=== PATIENT | male | born 1955 | race Caucasian/White ===

== ENCOUNTER 2017-01-01 16:12 | Inpatient (IN) | payer MEDICAID ==
[~2017-01-01] VITALS: Ht 188 cm; Wt 116.0 kg
[~2017-01-01 16:12] MED LIST: ACE325RS PR; LASIX; LEVO100T83 OR; TIOTCAP
[2017-01-01] MEDS ORDERED: SODIUM CHLORIDE 0.9% 1,000 ML IVB ONE (16:26)
[2017-01-01 17:06] LABS: Basophils # (auto) 0 uL; Basophils % (auto) 0.3 % (0.0-2.0); Eosinophils # (auto) 0 uL; Eosinophils % (auto) 0.2 % (0.0-7.0); Hematocrit 41.6 % (41.0-53.0); Hemoglobin 14.1 g/dL (13.5-17.5); Lymphocytes # (auto) 1.1 uL; Lymphocytes % (auto) 7.4 % (10.0-50.0); Mean Corpuscular Hemoglobin 32.6 pg (28.0-32.0); Mean Corpuscular Hgb Conc. 33.9 g/dL (32.0-36.0); Mean Corpuscular Volume 96.2 fL (80.0-100.0); Mean Platelet Volume 8.9 fL (6.9-10.8); Monocytes # (auto) 1.5 uL; Monocytes % (auto) 9.9 % (0.0-12.0); Neutrophils % (auto) 82.2 % (37.0-80.0); Nucleated Red Blood Cells % 0.1 %; Platelet Count (auto) 219 10^3/uL (140-450); Red Cell Distribution Width 14.2 % (11.8-14.3); White Blood Cell 14.7 10^3/uL (4.4-10.8)
[2017-01-01 17:20] LABS: Anion Gap 8 (5-15); Aspartate Aminotransferase 60 U/L (15-37); BUN/Creatinine Ratio 16.5; Blood Urea Nitrogen 23 mg/dL (7-18); Calcium 9.1 mg/dL (8.5-10.1); Carbon Dioxide 25 mmol/L (21-32); Chloride 100 mmol/L (98-107); GFR African American 67 mL/min; GFR Non-African American 55 mL/min; Glucose 127 mg/dL (74-106); Magnesium 2.2 mg/dL (1.6-2.6); Potassium 4.2 mmol/L (3.5-5.1); Sodium 133 mmol/L (136-145)
[2017-01-01 17:25] LABS: Alkaline Phosphatase 388 U/L (45-117); Bilirubin, Total 0.9 mg/dL (0.2-1.0); Total Protein 8.7 g/dL (6.4-8.2)
[2017-01-01] MEDS ORDERED: ACETAMINOPHEN 325 MG TAB PO PRN (22:15)
[2017-01-01] MEDS ORDERED: NITROGLYCERIN 0.4 MG SL TAB SL PRN (22:15)
[2017-01-01] MEDS ORDERED: MORPHINE SULF INJ 2 MG/ML SYRINGE 1ML IV PRN (22:15)
[2017-01-01] MEDS ORDERED: AZITHROMYCIN 500MG/D5W 250ML 250 ML IV ONE (22:15)
[2017-01-01] MEDS ORDERED: cefTRIAXone 1GM/50ML D5W 50 ML IV ONE (22:15)
[2017-01-01] MEDS ORDERED: HYDROcodone-ACET 5/325MG TAB PO PRN (22:15)
[2017-01-01] MEDS ORDERED: ONDANSETRON HCL 4 MG/2 ML VIAL IV PRN (22:15)
[2017-01-01 23:00] VITALS: BP_SYST 96; BP_DIAS 46; BP_DIAS 49
[2017-01-02 05:12] VITALS: BP 103/59
[2017-01-02 05:31] LABS: Basophils # (auto) 0 uL; Basophils % (auto) 0.4 % (0.0-2.0); Eosinophils # (auto) 0.1 uL; Eosinophils % (auto) 0.6 % (0.0-7.0); Hematocrit 38.1 % (41.0-53.0); Lymphocytes # (auto) 1.8 uL; Lymphocytes % (auto) 15.9 % (10.0-50.0); Mean Corpuscular Hemoglobin 32.3 pg (28.0-32.0); Mean Corpuscular Hgb Conc. 34.1 g/dL (32.0-36.0); Mean Corpuscular Volume 94.8 fL (80.0-100.0); Mean Platelet Volume 8.7 fL (6.9-10.8); Monocytes # (auto) 1.2 uL; Monocytes % (auto) 10.2 % (0.0-12.0); Neutrophils # (auto) 8.4 uL; Neutrophils % (auto) 72.9 % (37.0-80.0); Platelet Count (auto) 202 10^3/uL (140-450); White Blood Cell 11.5 10^3/uL (4.4-10.8)
[2017-01-02 05:49] LABS: Albumin 2.6 g/dL (3.4-5.0); BUN/Creatinine Ratio 18.3; Calcium 9.2 mg/dL (8.5-10.1); Potassium 4.1 mmol/L (3.5-5.1)
[2017-01-02 05:51] LABS: Bilirubin, Total 0.8 mg/dL (0.2-1.0); Total Protein 7.8 g/dL (6.4-8.2)
[2017-01-02] MEDS ORDERED: BACL20TA PO (06:30)
[2017-01-02] MEDS ORDERED: TRAM50TA2 PO (06:31)
[2017-01-02] MEDS ORDERED: LISI2.5T47 PO (06:32)
[2017-01-02] MEDS ORDERED: FER325T PO (06:32)
[2017-01-02] MEDS ORDERED: LEVO150T10 PO (06:32)
[2017-01-02] MEDS ORDERED: ALL100T PO (06:33)
[2017-01-02] MEDS ORDERED: PRAV20TA3 PO (06:33)
[2017-01-02] MEDS ORDERED: FURO40TA4 PO (06:34)
[2017-01-02] MEDS ORDERED: ALBUAER3 IN (06:35)
[2017-01-02] MEDS ORDERED: IPRIH INH (06:35)
[2017-01-02] MEDS ORDERED: FLUT110A IN (06:36)
[2017-01-02 07:00] VITALS: BP 98/58
[2017-01-02] MEDS: LEVOTHYROXINE SODIUM 100 MCG TAB PO SCH (07:06)
[2017-01-02] MEDS: FAMOTIDINE 20 MG TAB PO SCH ×2 (09:30→21:59)
[2017-01-02] MEDS: ENOXAPARIN SOD 40 MG/0.4 ML SYRINGE SC SCH (09:30)
[2017-01-02 11:46] VITALS: BP 106/65
[2017-01-02] MEDS ORDERED: LORazepam 2MG/ML-1ML VIAL IV PRN (13:30)
[2017-01-02 13:44] LABS: Cholesterol 151 mg/dL (< 200); HDL Cholesterol 33 mg/dL (40-59); LDL Cholesterol 104 mg/dL (< 100); Triglycerides 113 mg/dL (< 150)
[2017-01-02] MEDS: ASPirin-EC 81 mg tab PO SCH (14:35)
[2017-01-02 16:00] VITALS: BP 109/69
[2017-01-02 19:48] VITALS: BP 109/69
[2017-01-02 21:41] VITALS: BP 122/67
[2017-01-02] MEDS: cefTRIAXone 1GM/50ML D5W 50 ML IV SCH (21:58)
[2017-01-02] MEDS: ATORVASTATIN 20 MG TAB PO SCH (21:59)
[2017-01-02] MEDS: AZITHROMYCIN 500MG/D5W 250ML 250 ML IV SCH (21:59)
[2017-01-03] MEDS ORDERED: LACTULOSE 20Gm/30ML SOLN PO PRN (03:30)
[2017-01-03 04:50] VITALS: BP 99/61
[2017-01-03] MEDS: LEVOTHYROXINE SODIUM 100 MCG TAB PO SCH (06:35)
[2017-01-03 08:00] VITALS: BP 102/52
[2017-01-03] MEDS: FAMOTIDINE 20 MG TAB PO SCH ×2 (10:46→22:12)
[2017-01-03] MEDS: ASPirin-EC 81 mg tab PO SCH (10:46)
[2017-01-03] MEDS: ENOXAPARIN SOD 40 MG/0.4 ML SYRINGE SC SCH (10:46)
[2017-01-03 13:00] VITALS: BP 113/76
[2017-01-03 16:24] VITALS: BP 121/80
[2017-01-03] MEDS: cefTRIAXone 1GM/50ML D5W 50 ML IV SCH (20:50)
[2017-01-03 22:00] VITALS: BP 93/46
[2017-01-03] MEDS: AZITHROMYCIN 500MG/D5W 250ML 250 ML IV SCH (22:12)
[2017-01-03] MEDS: ATORVASTATIN 20 MG TAB PO SCH (22:12)
[2017-01-04 05:20] VITALS: BP 119/57
[2017-01-04] MEDS: LEVOTHYROXINE SODIUM 100 MCG TAB PO SCH (06:27)
[2017-01-04 07:31] VITALS: BP 104/65
[2017-01-04] MEDS: ASPirin-EC 81 mg tab PO SCH (10:30)
[2017-01-04] MEDS: FAMOTIDINE 20 MG TAB PO SCH ×2 (10:30→21:44)
[2017-01-04] MEDS: ENOXAPARIN SOD 40 MG/0.4 ML SYRINGE SC SCH (10:31)
[2017-01-04 11:00] VITALS: BP 113/67
[2017-01-04 16:34] VITALS: BP 94/57
[2017-01-04] MEDS: cefTRIAXone 1GM/50ML D5W 50 ML IV SCH (21:08)
[2017-01-04] MEDS: AZITHROMYCIN 500MG/D5W 250ML 250 ML IV SCH (21:08)
[2017-01-04] MEDS: ATORVASTATIN 20 MG TAB PO SCH (21:44)
[2017-01-04 22:00] VITALS: BP 100/43
[2017-01-05 05:30] VITALS: BP 105/70
[2017-01-05] MEDS: LEVOTHYROXINE SODIUM 100 MCG TAB PO SCH (06:49)
[2017-01-05 06:54] LABS: INR 0.97 (0.9-1.15); Prothrombin Time 10.6 sec (9.37-12.3)
[2017-01-05] MEDS ORDERED: IOHEXOL 350 MG/ML 100ML IJ ONE ×2 (07:25→10:12)
[2017-01-05] MEDS ORDERED: LIDOCAINE 2%HCL (LOCAL ANESTH.) INJ 20ML MDV ONE (07:26)
[2017-01-05 08:00] VITALS: BP 125/77
[2017-01-05] MEDS ORDERED: DOPamine 1600MCG/ML 0 ML IV ONE (08:16)
[2017-01-05] MEDS ORDERED: ATROPINE SULF 0.5 MG/5ML SYR ONE (08:16)
[2017-01-05] MEDS ORDERED: GLYCOPYRROLATE 0.2 MG/ML 1ML VIAL ONE (08:16)
[2017-01-05] MEDS ORDERED: PHENYLEPHRINE HCL 10 MG/ML VL ONE (08:17)
[2017-01-05] MEDS ORDERED: ANGIOMAX 250 MG VIAL IV ONE (08:19)
[2017-01-05] MEDS ORDERED: SODIUM CHL 0.9% 0 ML ONE (08:23)
[2017-01-05 09:00] VITALS: BP 125/77
[2017-01-05] MEDS: ENOXAPARIN SOD 40 MG/0.4 ML SYRINGE SC SCH (10:00)
[2017-01-05] MEDS: FAMOTIDINE 20 MG TAB PO SCH ×2 (11:44→22:00)
[2017-01-05] MEDS: ASPirin-EC 81 mg tab PO SCH (11:44)
[2017-01-05 13:05] VITALS: BP 108/61
[2017-01-05 17:00] VITALS: BP 114/68
[2017-01-05] MEDS: cefTRIAXone 1GM/50ML D5W 50 ML IV SCH (21:00)
[2017-01-05] MEDS: AZITHROMYCIN 500MG/D5W 250ML 250 ML IV SCH (21:00)
[2017-01-05] MEDS: ATORVASTATIN 20 MG TAB PO SCH (22:00)
[2017-01-06 00:30] VITALS: BP 109/70
[2017-01-06 01:35] VITALS: BP 109/70
[2017-01-06 05:00] VITALS: BP 100/55
[2017-01-06] MEDS: LEVOTHYROXINE SODIUM 100 MCG TAB PO SCH (06:18)
[2017-01-06 08:00] VITALS: BP 113/69
[2017-01-06 09:00] VITALS: BP 113/69
[2017-01-06 09:15] VITALS: BP 113/69
[2017-01-06] MEDS: FAMOTIDINE 20 MG TAB PO SCH (10:33)
[2017-01-06] MEDS: ENOXAPARIN SOD 40 MG/0.4 ML SYRINGE SC SCH (10:33)
[2017-01-06] MEDS: ASPirin-EC 81 mg tab PO SCH (10:33)
== END 2017-01-06 13:05 | disposition home or self-care (01) | DRG 46 ==
LOC: EDBD 16:12 → ER 16:16 → TELE 16:17 → TELE-WESTW 22:31
PROVIDERS: ADMIT Nurse Practitioner; ATTEND Internal Medicine
PROC: 5A09357 Assistance with Respiratory Ventilation, Less than 24 Consecutive Hours, Continuous Positive Airway Pressure (ICD-10-PCS; 2017-01-02)
PROC: B3151ZZ Fluoroscopy of Bilateral Common Carotid Arteries using Low Osmolar Contrast (ICD-10-PCS; principal; 2017-01-05)
PROC: B3181ZZ Fluoroscopy of Bilateral Internal Carotid Arteries using Low Osmolar Contrast (ICD-10-PCS; 2017-01-05)
PROC: B31C1ZZ Fluoroscopy of Bilateral External Carotid Arteries using Low Osmolar Contrast (ICD-10-PCS; 2017-01-05)
DX: I65.21 Occlusion and stenosis of right carotid artery (principal); J18.9 Pneumonia, unspecified organism; I95.9 Hypotension, unspecified; K74.60 Unspecified cirrhosis of liver; J44.0 Chronic obstructive pulmonary disease with (acute) lower respiratory infection; N18.3 Chronic kidney disease, stage 3 (moderate); M19.90 Unspecified osteoarthritis, unspecified site; G80.8 Other cerebral palsy; M10.9 Gout, unspecified; I12.9 Hypertensive chronic kidney disease with stage 1 through stage 4 chronic kidney disease, or unspecified chronic kidney disease; Z90.49 Acquired absence of other specified parts of digestive tract; Z79.82 Long term (current) use of aspirin; Z79.899 Other long term (current) drug therapy; Z87.891 Personal history of nicotine dependence; Z71.3 Dietary counseling and surveillance
CPT/HCPCS: 36223; 36227; 36415; 70450; 70551; 71010; 80053; 80061; 82962; 83735; 84484; 85025; 85379; 85610; 87040; 93005; 93306; 93886; 94660; 94761; 95819; 96360; 99152; 99153; J0461; J0696

== ENCOUNTER 2017-09-03 11:09 | Emergency (ER) | payer MEDICAID ==
[~2017-09-03] VITALS: Ht 188 cm; Wt 116.6 kg
[~2017-09-03 11:09] MED LIST changes: -ACE325RS PR; +ALBUAER3 IN; +ALL100T PO; +BACL20TA PO; +FER325T PO; +FLUT110A IN; +FURO40TA4 PO; +IPRIH INH; -LASIX; -LEVO100T83 OR; +LEVO150T10 PO; +LISI2.5T47 PO; +PRAV20TA3 PO; -TIOTCAP; +TRAM50TA2 PO
[2017-09-03 11:17] VITALS: BP 117/83
[2017-09-03] MEDS ORDERED: LIDOCAINE 1% HCL (LOCAL ANESTH.) INJ 20ML MDV ONE (11:43)
[2017-09-03] MEDS ORDERED: LIDOCAINE 1% (LOCAL ANESTH.) PF 5ml SDV IJ ONE (11:45)
[2017-09-03] MEDS ORDERED: TETANUS-DIPTH-ACEL PERTUSSIS 0.5ML SYRG IM ONE (12:15)
== END 2017-09-03 12:31 | disposition home or self-care (01) ==
LOC: ER 11:09
DX: S51.811A Laceration without foreign body of right forearm, initial encounter (principal); J44.9 Chronic obstructive pulmonary disease, unspecified; I10 Essential (primary) hypertension; M19.90 Unspecified osteoarthritis, unspecified site; Z90.49 Acquired absence of other specified parts of digestive tract; Z87.891 Personal history of nicotine dependence; W20.8XXA Other cause of strike by thrown, projected or falling object, initial encounter; Y93.89 Activity, other specified; Y92.89 Other specified places as the place of occurrence of the external cause; Y99.8 Other external cause status
CPT/HCPCS: 12002; 90471; 90715; 99283; J2001

== ENCOUNTER 2021-06-10 17:17 | Inpatient (IN) | payer BC, MEDICAID ==
[~2021-06-10] VITALS: Ht 188 cm; Wt 114.5 kg
[2021-06-10 19:11] LABS: White Blood Cell 8.3 10^3/uL (4.4-10.8)
[2021-06-10 19:17] LABS: Hematocrit 38.2 % (41.0-53.0); Hemoglobin 13.3 g/dL (13.5-17.5); Mean Corpuscular Hemoglobin 31.7 pg (28.0-32.0); Mean Corpuscular Hgb Conc. 34.7 g/dL (32.0-36.0); Mean Corpuscular Volume 91.4 fL (80.0-100.0); Red Blood Cells 4.18 10^6/uL (4.5-5.90); Red Cell Distribution Width 17.1 % (11.8-14.3)
[2021-06-10 19:23] LABS: Basophils % (manual) 0 (0.0-2.0); Blast Cells 0; Metamyelocytes % 0; Myelocytes % 0; Promyelocytes % 0; Reactive Lymphocytes 0
[2021-06-10 19:33] LABS: Potassium 3.7 mmol/L (3.5-5.1)
[2021-06-10 19:42] LABS: Albumin 2.8 g/dL (3.4-5.0); BUN/Creatinine Ratio 22.8; Bilirubin, Total 0.7 mg/dL (0.2-1.0); Calcium 8.7 mg/dL (8.5-10.1); Magnesium 2.4 mg/dL (1.6-2.6); Total Protein 6.9 g/dL (6.4-8.2)
[2021-06-10] MEDS ORDERED: IOHEXOL 350 MG/ML 100ML IJ ONE (20:33)
[2021-06-10 20:45] LABS: Band Neutrophils % (manual) 5; Eosinophils % (manual) 1 (0-7); Lymphocytes % (manual) 18 (10.0-50.0); Monocytes % (manual) 15 (0-12)
[2021-06-10] MEDS ORDERED: REMDESIVIR PER PHARMACY 0 ML IV SCH (22:30)
[2021-06-10] MEDS ORDERED: ALBUTEROL SULF HFA 90MCG INH 200DOSE IN PRN (22:30)
[2021-06-11 05:00] VITALS: BP 116/77
[2021-06-11] MEDS ORDERED: IPRATROPIUM BROM 0.5 MG/2.5ML INH SOL NEB PRN (06:00)
[2021-06-11] MEDS ORDERED: ALBUTEROL SULF 2.5 MG/0.5ML(0.5%) NEB SOLN NEB PRN (06:00)
[2021-06-11 09:00] VITALS: BP 111/70
[2021-06-11] MEDS ORDERED: BUDESONIDE (INHALATION) 180 MCG IH IN SCH (10:00)
[2021-06-11 10:36] LABS: Basophils # (auto) 0 10 ^3/uL (0-0.2); Basophils % (auto) 0.8 % (0.0-2.0); Eosinophils # (auto) 0.1 10 ^3/uL (0-0.8); Eosinophils % (auto) 1.8 % (0.0-7.0); Hematocrit 36.1 % (41.0-53.0); Hemoglobin 12.2 g/dL (13.5-17.5); Lymphocytes # (auto) 2.4 10 ^3/uL (0.4-5.4); Lymphocytes % (auto) 36.9 % (10.0-50.0); Mean Corpuscular Hemoglobin 31.1 pg (28.0-32.0); Mean Corpuscular Hgb Conc. 33.8 g/dL (32.0-36.0); Mean Corpuscular Volume 92.1 fL (80.0-100.0); Monocytes # (auto) 0.5 10 ^3/uL (0-1.3); Monocytes % (auto) 8.4 % (0.0-12.0); Neutrophils # (auto) 3.4 10 ^3/uL (1.6-8.6); Neutrophils % (auto) 52.1 % (37.0-80.0); Red Blood Cells 3.92 10^6/uL (4.5-5.90); Red Cell Distribution Width 16.5 % (11.8-14.3); White Blood Cell 6.4 10^3/uL (4.4-10.8)
[2021-06-11] MEDS: DexAMETHasone SOD PHOS 10MG/1ML VIAL INJ IV SCH (10:36)
[2021-06-11] MEDS: ENOXAPARIN SOD 40 MG/0.4 ML SYRINGE SC SCH (10:39)
[2021-06-11] MEDS: CHOLECALCIFEROL (VITD3) 2,000 UNIT CAP/TAB PO SCH (10:41)
[2021-06-11] MEDS: LISINOPRIL 5 MG TAB PO SCH (10:43)
[2021-06-11] MEDS: ASCORBIC ACID 1,000 MG TAB PO SCH (10:44)
[2021-06-11] MEDS: ZINC SULFATE 220mg CAP or TAB PO SCH (10:44)
[2021-06-11] MEDS: traMADol HCL 50 MG TAB PO SCH (10:44)
[2021-06-11 10:51] LABS: Albumin 2.7 g/dL (3.4-5.0); Calcium 8.5 mg/dL (8.5-10.1); Potassium 3.6 mmol/L (3.5-5.1)
[2021-06-11] MEDS: FUROSEMIDE 20 MG TAB PO SCH (10:52)
[2021-06-11 10:56] LABS: BUN/Creatinine Ratio 23.1; Bilirubin, Total 0.8 mg/dL (0.2-1.0); Total Protein 6.5 g/dL (6.4-8.2)
[2021-06-11] MEDS: ALLOPURINOL 100 MG TAB PO SCH (11:48)
[2021-06-11 13:00] VITALS: BP 103/71
[2021-06-11 17:00] VITALS: BP 116/78
[2021-06-11] MEDS ORDERED: REMDESIVIR 200 MG in NS 210ml LOADING DOSE ADULT IV ONE (17:00)
[2021-06-11 22:00] VITALS: BP 102/70
[2021-06-11] MEDS: PRAVASTATIN SODIUM 20 MG TAB PO SCH (22:14)
[2021-06-12 05:36] LABS: Albumin 2.6 g/dL (3.4-5.0); BUN/Creatinine Ratio 23.9; Calcium 8.6 mg/dL (8.5-10.1)
[2021-06-12 05:39] LABS: Bilirubin, Total 0.5 mg/dL (0.2-1.0); Total Protein 6.4 g/dL (6.4-8.2)
[2021-06-12] MEDS: LEVOTHYROXINE SODIUM 50 MCG TAB PO SCH (06:03)
[2021-06-12 09:00] VITALS: BP 110/64
[2021-06-12] MEDS: FUROSEMIDE 20 MG TAB PO SCH (10:00)
[2021-06-12] MEDS: CHOLECALCIFEROL (VITD3) 2,000 UNIT CAP/TAB PO SCH (10:00)
[2021-06-12] MEDS: traMADol HCL 50 MG TAB PO SCH (10:00)
[2021-06-12] MEDS: LISINOPRIL 5 MG TAB PO SCH (10:00)
[2021-06-12] MEDS: ASCORBIC ACID 1,000 MG TAB PO SCH (10:00)
[2021-06-12] MEDS: ENOXAPARIN SOD 40 MG/0.4 ML SYRINGE SC SCH (10:00)
[2021-06-12] MEDS: ZINC SULFATE 220mg CAP or TAB PO SCH (10:00)
[2021-06-12] MEDS: ALLOPURINOL 100 MG TAB PO SCH (10:00)
[2021-06-12] MEDS: DexAMETHasone SOD PHOS 10MG/1ML VIAL INJ IV SCH (10:00)
[2021-06-12 13:10] VITALS: BP 112/74
[2021-06-12] MEDS ORDERED: REMDESIVIR 100mg 100 MG in SODIUM CHL 0.9% 230 ML IV SCH (15:00)
[2021-06-12 15:16] VITALS: BP 110/64
[2021-06-12 17:40] VITALS: BP 105/60
[2021-06-12] MEDS: TEMAZEPAM 15 MG CAP PO PRN (21:33)
[2021-06-12] MEDS: PRAVASTATIN SODIUM 20 MG TAB PO SCH (21:34)
[2021-06-12 21:51] VITALS: BP 102/49
[2021-06-13 00:01] VITALS: BP 115/69
[2021-06-13] MEDS: TEMAZEPAM 15 MG CAP PO PRN ×2 (00:23→21:41)
[2021-06-13 04:06] VITALS: BP 101/64
[2021-06-13] MEDS: LEVOTHYROXINE SODIUM 50 MCG TAB PO SCH (06:02)
[2021-06-13 07:01] LABS: Potassium 4.3 mmol/L (3.5-5.1)
[2021-06-13 07:05] LABS: Albumin 2.7 g/dL (3.4-5.0); BUN/Creatinine Ratio 32.2; Calcium 9.1 mg/dL (8.5-10.1)
[2021-06-13 07:07] LABS: Bilirubin, Total 0.3 mg/dL (0.2-1.0); Total Protein 6.4 g/dL (6.4-8.2)
[2021-06-13] MEDS: DexAMETHasone SOD PHOS 10MG/1ML VIAL INJ IV SCH (09:11)
[2021-06-13] MEDS: ZINC SULFATE 220mg CAP or TAB PO SCH (09:11)
[2021-06-13] MEDS: FUROSEMIDE 20 MG TAB PO SCH (09:11)
[2021-06-13] MEDS: traMADol HCL 50 MG TAB PO SCH (09:12)
[2021-06-13] MEDS: CHOLECALCIFEROL (VITD3) 2,000 UNIT CAP/TAB PO SCH (09:12)
[2021-06-13] MEDS: ASCORBIC ACID 1,000 MG TAB PO SCH (09:12)
[2021-06-13] MEDS: ALLOPURINOL 100 MG TAB PO SCH (09:13)
[2021-06-13] MEDS: LISINOPRIL 5 MG TAB PO SCH (09:13)
[2021-06-13] MEDS: ENOXAPARIN SOD 40 MG/0.4 ML SYRINGE SC SCH (09:13)
[2021-06-13 09:16] VITALS: BP 105/69
[2021-06-13 13:00] VITALS: BP 93/57
[2021-06-13 17:00] VITALS: BP 105/69
[2021-06-13] MEDS: PRAVASTATIN SODIUM 20 MG TAB PO SCH (21:41)
[2021-06-13 22:00] VITALS: BP 100/42
[2021-06-14 05:00] VITALS: BP 109/68
[2021-06-14 06:13] LABS: Potassium 4.2 mmol/L (3.5-5.1)
[2021-06-14 06:19] LABS: Albumin 2.7 g/dL (3.4-5.0); BUN/Creatinine Ratio 36.8; Bilirubin, Total 0.4 mg/dL (0.2-1.0); Calcium 8.8 mg/dL (8.5-10.1); Total Protein 6.6 g/dL (6.4-8.2)
[2021-06-14] MEDS: LEVOTHYROXINE SODIUM 50 MCG TAB PO SCH (06:28)
[2021-06-14 09:00] VITALS: BP 104/73
[2021-06-14] MEDS: DexAMETHasone SOD PHOS 10MG/1ML VIAL INJ IV SCH (10:35)
[2021-06-14] MEDS: ZINC SULFATE 220mg CAP or TAB PO SCH (10:35)
[2021-06-14] MEDS: FUROSEMIDE 20 MG TAB PO SCH (10:36)
[2021-06-14] MEDS: CHOLECALCIFEROL (VITD3) 2,000 UNIT CAP/TAB PO SCH (10:36)
[2021-06-14] MEDS: ASCORBIC ACID 1,000 MG TAB PO SCH (10:36)
[2021-06-14] MEDS: traMADol HCL 50 MG TAB PO SCH (10:36)
[2021-06-14] MEDS: ENOXAPARIN SOD 40 MG/0.4 ML SYRINGE SC SCH (10:37)
[2021-06-14] MEDS: ALLOPURINOL 100 MG TAB PO SCH (10:37)
[2021-06-14] MEDS: LISINOPRIL 5 MG TAB PO SCH (10:37)
[2021-06-14 13:00] VITALS: BP 105/63
[2021-06-14 14:03] VITALS: BP 145/79
== END 2021-06-14 15:17 | disposition home health service (06) | DRG 177 ==
LOC: EDBD 17:17 → ER 17:17 → EDUNIT# 17:17 → TELE 22:21 → TELE-EAST 06-11 03:30
PROVIDERS: ADMIT Internal Medicine; ATTEND Internal Medicine Geriatric Medicine
PROC: XW033E5 Introduction of Remdesivir Anti-infective into Peripheral Vein, Percutaneous Approach, New Technology Group 5 (ICD-10-PCS; principal; 2021-06-10)
DX: U07.1 COVID-19 (principal); J96.01 Acute respiratory failure with hypoxia; J12.9 Viral pneumonia, unspecified; Z87.01 Personal history of pneumonia (recurrent); E03.9 Hypothyroidism, unspecified; E66.9 Obesity, unspecified; E78.5 Hyperlipidemia, unspecified; G80.9 Cerebral palsy, unspecified; I10 Essential (primary) hypertension; M10.9 Gout, unspecified; M19.90 Unspecified osteoarthritis, unspecified site; Z59.00 Homelessness unspecified; Z79.890 Hormone replacement therapy; Z79.899 Other long term (current) drug therapy; Z80.9 Family history of malignant neoplasm, unspecified; Z82.49 Family history of ischemic heart disease and other diseases of the circulatory system; Z91.19 Patient's noncompliance with other medical treatment and regimen; Z95.0 Presence of cardiac pacemaker; Z68.32 Body mass index [BMI] 32.0-32.9, adult; Z90.49 Acquired absence of other specified parts of digestive tract
CPT/HCPCS: 36415; 36600; 71275; 80053; 82728; 82805; 83735; 83880; 84484; 85007; 85025; 85027; 85379; 86141; 93005; G0378; J1100